=== PATIENT | male | born 1970 | race Caucasian/White ===

== ENCOUNTER 2018-03-29 08:58 | Emergency (ER) | payer OTHER ==
--- NOTE | 2018-03-29 09:47 | XR ---
EXAMINATION TYPE: XR shoulder complete LT DATE OF EXAM: 03/29/2018 CLINICAL HISTORY: Fall injury 5 days ago with pain. TECHNIQUE: Three views of the left shoulder are obtained. COMPARISON: None. FINDINGS: There is acute comminuted minimally displaced fracture involving lateral aspect of left hu meral head including the greater tuberosity. No significant displacement or angulation is present. T he acromioclavicular and glenohumeral joint spaces show mild narrowing. The visualized ribs are inta ct and unremarkable. IMPRESSION: There is acute comminuted minimally displaced fracture involving superolateral left treasure ral head including involvement of the greater tuberosity. Orthopedic follow-up recommended. (Initial encounter closed type post traumatic fracture)
[2018-03-29] MEDS ORDERED: ACET/COD 300 MG/30 MG STARTER PACK 6 TAB BTL PO STA (10:02)
--- NOTE | 2018-03-29 10:02 | ED ---
Upper Extremity HPI - General Chief Complaint: Extremity Injury, Upper Stated Complaint: Fell off ladder shoulder pain Time Seen by Provider: 03/29/18 09:08 Source: patient, RN notes reviewed Mode of arrival: ambulatory Limitations: no limitations - History of Present Illness Initial Comments: This a 47-year-old male presents emergency Department chief complaint of left shoulder pain. Patient states that he was on a 10 foot ladder states that he fell off onto his left side. Patient states his happened on . He had no head injury no loss conscious. Patient only complaint is left shoulder pain states he is unable to move it secondary to pain. Patient denies any hip, back , chest pain, lower extremity injury. - Related Data Home Medications Medication Instructions Recorded Confirmed Acetaminophen Tab [Tylenol Tab] 2,000 mg PO Q6HR PRN 03/29/18 03/29/18 Allergies Allergy/AdvReac Type Severity Reaction Status Date / Time No Known Allergies Allergy Verified 03/29/18 09:12 Review of Systems ROS Statement: Those systems with pertinent positive or pertinent negative responses have been documented in the HPI. ROS Other: All systems not noted in ROS Statement are negative. Past Medical History Past Medical History: No Reported History History of Any Multi-Drug Resistant Organisms: None Reported Past Surgical History: Tonsillectomy Past Psychological History: No Psychological Hx Reported Smoking Status: Current every day smoker Past Alcohol Use History: None Reported Past Drug Use History: None Reported General Exam Limitations: no limitations General appearance: alert, in no apparent distress Head exam: Present: atraumatic, normocephalic, normal inspection Neck exam: Present: normal inspection, full ROM. Absent: tenderness, meningismus, lymphadenopathy Respiratory exam: Present: normal lung sounds bilaterally. Absent: respiratory distress, wheezes, rales, rhonchi, stridor Cardiovascular Exam: Present: regular rate, normal rhythm, normal heart sounds. Absent: systolic murmur, diastolic murmur, rubs, gallop, clicks GI/Abdominal exam: Present: soft, normal bowel sounds. Absent: distended, tenderness, guarding, rebound, rigid Extremities exam: Present: other (Left shoulder tenderness with palpation, left arm is neurovascularly intact no obvious deformity patient has very limited range of motion good strength equal bilaterally) Neurological exam: Present: alert, oriented X3, CN II-XII intact, reflexes normal. Absent: motor sensory deficit Skin exam: Present: warm, dry, intact, normal color. Absent: rash Course Vital Signs 03/29/18 09:04 Temperature 98.0 F Pulse Rate 92 Respiratory 18 Rate Blood Pressure 129/81 O2 Sat by Pulse 100 Oximetry Medical Decision Making - Medical Decision Making 47-year-old male presents emergency department for left shoulder pain. Patient did have x-rays which shows acute fracture of the humerus. Patient we placed a sling and follow-up with orthopedics. Return parameters were discussed. Disposition Clinical Impression: Left humeral fracture Disposition: HOME SELF-CARE Condition: Stable Instructions: Arm Fracture in Adults (ED) Additional Instructions: Please return to the Emergency Department if symptoms worsen or any other concerns. Is patient prescribed a controlled substance at d/c from ED?: No Referrals: Uvaldo Cavazos MD [STAFF PHYSICIAN] - 1-2 days Time of Disposition: 10:02
[2018-03-29 10:24] VITALS: BP 139/86; PULSE 81; RESP 16; TEMP 97.3
== END 2018-03-29 10:19 | disposition home or self-care (01) ==
LOC: EC 08:58
DX: S42.202A Unspecified fracture of upper end of left humerus, initial encounter for closed fracture (principal); F17.200 Nicotine dependence, unspecified, uncomplicated; W11.XXXA Fall on and from ladder, initial encounter
CPT/HCPCS: 99283